=== PATIENT | male | born 1990 | race African-American/Black ===

== ENCOUNTER 2019-10-26 16:27 | Emergency (ER) | payer MEDICAID ==
[~2019-10-26] VITALS: Ht 182.9 cm; Wt 79.4 kg
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
--- NOTE | 2019-10-26 16:40 | NUR ---
AT BEDSIDE FOR EVAL.
[2019-10-26] MEDS ORDERED: LIDOCAINE HCL/MPF 1% 30 ML VIAL IJ ONE (16:56)
[2019-10-26] MEDS ORDERED: TDAP [DIPH/PERTUSSIS/TET] 0.5 ML VIAL IM ONE ×2 (16:56→17:00)
[2019-10-26] MEDS ORDERED: LIDOCAINE 1% INJ 50 ML MDV IJ ONE (17:00)
--- NOTE | 2019-10-26 17:39 | NUR ---
Laceration repair done. Ambulatory with steady gait. Patient discharged to home in stable condition. Written and verbal after care instructions given. Patient verbalizes understanding of instruction.
[2019-10-26 17:43] VITALS: BP 136/96
== END 2019-10-26 18:02 | disposition home or self-care (01) ==
LOC: ER 16:30
DX: S01.81XA Laceration without foreign body of other part of head, initial encounter (principal); Z60.2 Problems related to living alone; W26.8XXA Contact with other sharp object(s), not elsewhere classified, initial encounter; Y93.89 Activity, other specified; Y92.89 Other specified places as the place of occurrence of the external cause; Y99.8 Other external cause status
CPT/HCPCS: 12011; 99283; A6403; 90715; J3490

== ENCOUNTER 2020-03-05 12:30 | Emergency (ER) | payer MEDICAID, OTHER ==
[~2020-03-05] VITALS: Ht 182.9 cm; Wt 76.2 kg
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
--- NOTE | 2020-03-05 12:37 | NUR ---
DR PEREZ AT BEDSIDE
--- NOTE | 2020-03-05 12:42 | NUR ---
DR PEREZ AT BEDSIDE FOR EVAL.
[2020-03-05] MEDS ORDERED: LORAZEPAM INJ 2 MG/ML VIAL ONE ×2 (12:47→14:33)
--- NOTE | 2020-03-05 12:57 | NUR ---
RADIOLOGY AT BEDSIDE FOR CHEST XRAY.
[2020-03-05] MEDS: IV NS 0.9% 1,000 ML BAG IV ONE (13:00)
--- NOTE | 2020-03-05 13:00 | NUR ---
IV LINE STARTED BLOOD DRAWN AND SENT TO LAB.
[2020-03-05] MEDS: LORAZEPAM INJ 2 MG/ML VIAL IVP ONE (13:01)
[2020-03-05 13:17] LABS: BASOPHILS % (AUTO) 0.5 % (0.0-2.0); EOSINOPHILS % (AUTO) 3.4 % (0.0-6.0); HEMATOCRIT 55 % (39-51); HEMOGLOBIN 18.4 g/dL (13.5-17.5); LYMPHOCYTES # (AUTO) 1.9 /CMM (0.8-4.8); LYMPHOCYTES % (AUTO) 27.9 % (20.0-44.0); MEAN CORPUSCULAR HGB CONC 34 g/dl (31.0-36.0); MEAN CORPUSCULAR VOLUME 80 fL (80-96); MONOCYTES % (AUTO) 14.3 % (2.0-12.0); NEUTROPHILS # (AUTO) 3.7 /CMM (1.8-8.9); NEUTROPHILS % (AUTO) 53.9 % (43.0-81.0); PLATELET COUNT (AUTO) 221 /CMM (150-450); RED BLOOD CELL COUNT(AUTO) 6.89 MIL/uL (4.5-6.0); WHITE BLOOD COUNT (AUTO) 6.9 K/uL (4.3-11.0)
[2020-03-05 13:19] LABS: CALCIUM, SERUM 9.9 mg/dL (8.5-10.1); CREATININE 1.3 mg/dL (0.6-1.3); POTASSIUM 3.3 mmol/L (3.5-5.1)
--- NOTE | 2020-03-05 13:57 | NUR ---
PT SLEEPING ON MONITOR. STABLE VITALS. WILL CONTINUE TO MONITOR.
[2020-03-05] MEDS: LORAZEPAM INJ 2 MG/ML VIAL IV ONE (14:38)
--- NOTE | 2020-03-05 14:38 | NUR ---
PATIENT REFUSED ATIVAN 1MG IV..STATES "I'M FEELING BETTER".
--- NOTE | 2020-03-05 15:21 | NUR ---
AMBULATORY W/ STEADY GAIT, FEELING MUCH BETTER. SHAUNA D/C'D. DISCHARGE IN STABLE CONDITION.
[2020-03-05 15:22] VITALS: BP 128/77
[2020-03-05 16:58] LABS: EOSINOPHILS % (MANUAL) 5 % (0-4); LYMPHOCYTES % (MANUAL) 24 % (16-48); MONOCYTES % (MANUAL) 14 % (0-11.0); NEUTROPHILS % (MANUAL) 53 (42-76); REACTIVE LYMPHOCYTES 4 % (0-0)
== END 2020-03-05 15:23 | disposition home or self-care (01) ==
LOC: ER 12:35
DX: R06.02 Shortness of breath (principal); F41.9 Anxiety disorder, unspecified; F15.10 Other stimulant abuse, uncomplicated; R06.4 Hyperventilation
CPT/HCPCS: 36415; 71045; 80048; 85007; 85025; 96361; 96374; 99284; J2060 ×2; J7030

== ENCOUNTER 2020-03-14 07:53 | Emergency (ER) | payer OTHER ==
[~2020-03-14] VITALS: Ht 182.9 cm; Wt 78.0 kg
--- NOTE | 2020-03-14 08:10 | NUR ---
SEEN AND EXAMINED BY .
[2020-03-14] MEDS ORDERED: LORAZEPAM INJ 2 MG/ML VIAL ONE (08:27)
[2020-03-14] MEDS: LORAZEPAM INJ 2 MG/ML VIAL IM ONE (08:30)
--- NOTE | 2020-03-14 08:50 | NUR ---
OCC MED PHYSICIAN AT BEDSIDE FOR XRAY.
--- NOTE | 2020-03-14 08:57 | NUR ---
PT STATRED FEELING BETTER VSS
--- NOTE | 2020-03-14 09:15 | NUR ---
PT. VERBALIZED UNDERSTANDING OF AFTERCARE INSTRUCTIONS.Patient discharged to home in stable condition. Written and verbal after care instructions given. Patient verbalizes understanding of instruction.
[2020-03-14 09:17] VITALS: BP 125/73
== END 2020-03-14 09:18 | disposition home or self-care (01) ==
LOC: ER 07:56
DX: F41.9 Anxiety disorder, unspecified (principal); R06.02 Shortness of breath
CPT/HCPCS: 71045; 93005; 96372; 99283; J2060